=== PATIENT | male | born 1990 | race Caucasian/White ===

== ENCOUNTER 2017-08-31 15:57 | Emergency (ER) | payer SELFPAY, OTHER ==
[2017-08-31 16:38] LABS: ADD UMIC YES; UR ASCORBIC ACID NEGATIVE (NEGATIVE); UR BACTERIA FEW /HPF (NONE SEEN); UR BILIRUBIN (Dip) NEGATIVE (NEGATIVE); UR BLOOD (Dip) NEGATIVE (NEGATIVE); UR CLARITY CLEAR (CLEAR); UR COLOR YELLOW (YELLOW); UR GLUCOSE (Dip) NEGATIVE (NEGATIVE); UR KETONES (Dip) NEGATIVE (NEGATIVE); UR LEUKOCYTE ESTERASE (Dip) TRACE Leu/ul (NEGATIVE); UR NITRITE (Dip) NEGATIVE (NEGATIVE); UR RBC 1 /HPF (0-5); UR SPECIFIC GRAVITY (Dip) 1.023 (1.003-1.030); UR TOTAL PROTEIN (Dip) NEGATIVE (NEGATIVE); UR UROBILINOGEN (Dip) NEGATIVE (NEGATIVE); UR WBC 17 /HPF (0-5)
[2017-08-31] MEDS: AZITHROMYCIN 250 MG TAB PO (16:48)
[2017-08-31] MEDS: CEFTRIAXONE 500 MG INJ IM (16:51)
[2017-08-31] MEDS: LIDOCAINE 1% (MDV) 10 ML INJ INJ (16:51)
== END 2017-08-31 17:48 | disposition home or self-care (01) ==
LOC: FTE 15:57
DX: R30.0 Dysuria (principal)
CPT/HCPCS: 81001; 87591; 96372; 99284-25

== ENCOUNTER 2018-06-03 14:37 | Emergency (ER) | payer SELFPAY | END 2018-06-03 17:22 | disposition left against medical advice (07) | LOC: E/R 14:37 | DX: Z53.21 Procedure and treatment not carried out due to patient leaving prior to being seen by health care provider (principal) ==

== ENCOUNTER 2018-11-15 22:13 | Emergency (ER) | payer OTHER ==
[2018-11-15] MEDS: AZITHROMYCIN 500 MG TAB PO (23:24)
[2018-11-15] MEDS: CEFTRIAXONE 250 MG INJ IM (23:25)
[2018-11-15] MEDS: LIDOCAINE 1% (MPF) 5 ML VIAL INJ (23:25)
== END 2018-11-15 23:46 | disposition home or self-care (01) ==
LOC: FTE 22:13
DX: Z11.3 Encounter for screening for infections with a predominantly sexual mode of transmission (principal)
CPT/HCPCS: 87591; 96372; 99284-25